=== PATIENT | male | born 1990 | race Two or more races ===

== ENCOUNTER 2025-10-23 18:08 | Emergency (ER) | payer MEDICAID, OTHER ==
[~2025-10-23] VITALS: Ht 162.6 cm; Wt 81.2 kg
[2025-10-23] MEDS ORDERED: IBUP-1455 PO (19:45)
--- NOTE | 2025-10-23 19:53 | ED.PDOC ---
Marcia. trauma (HPI) HPI Comments This is a 35 year-old male who presents to the ED with a chief complaint of neck pain as of yesterday. Patient states he was holding a pitbull when the dog attempted to bite him in the face. Patient twisted his neck in attempt to avoid getting bitten. Patient reports hearing a crack sound, similar to when cracking his knuckles. Patient states he is seeking a work excuse form to fully recover. Patient has no further complaints at this time and otherwise denies LOC, slurred speech, blurred vision, or N/V/D. Chief Complaint: Neck Pain Time Seen by MD: 19:30 Reviewed notes: Medications, Allergies Allergies: Coded Allergies: NO KNOWN ALLERGIES (Unverified , 10/23/25) Home Meds Active Scripts Ibuprofen Micronized (Ibuprofen) 800 Mg Tab, 800 MG PO QID PRN, #20 TAB Prov:LINNETTE BABCOCK 10/23/25 Information Source: Patient Mode of Arrival: Ambulatory Severity: Moderate Timing: Hours Duration: Since onset Location: Neck Mechanism: Twisting Past Medical History PAST MEDICAL HISTORY: Denies Surgical History: Denies all surgeries Family History Family History: Reviewed,noncontributory to illness, No family hx of Cancer, No family hx of DM, No family hx of Heart burke, No family hx of HTN, No family hx ofKidney burke, No family hx of Liver burke, No family hx of Lung burke, No family hx of Stroke Social History Smoker: Non-Smoker Alcohol: Denies ETOH Use Drugs: Denies Drug Use Lives In: Home Constitutional: denies: chills, diaphoresis, fatigue, fever, malaise, sweats, weakness, others EENTM: denies: blurred vision, double vision, ear bleeding, ear discharge, ear drainage, ear pain, ear ringing, eye pain, eye redness, hearing loss, mouth pain, mouth swelling, nasal discharge, nose bleeding, nose congestion, nose yessenia n, photophobia, tearing, throat pain, throat swelling, voice changes, others Respiratory: denies: cough, hemoptysis, orthopnea, SOB at rest, shortness of breath, SOB with excertion, stridor, wheezing, others Cardiovascular: denies: chest pain, dizzy spells, diaphoresis, Dyspnea on exertion, edema, irregular heart beat, left arm pain, lightheadedness, palpitations, PND, syncope, others Gastrointestinal: denies: abdomen distended, abdominal pain, blood streaked bowels, constipated, diarrhea, dysphagia, difficulty swallowing, hematemesis, melena, nausea, poor appetite, poor fluid intake, rectal bleeding, rectal pain, vomiting, others Genitourinary: denies: burning, dysuria, flank pain, frequency, hematuria, incontinence, penile discharge, penile sore, pain, testicle pain, testicle swelling, urgency, others Neurological: denies: dizziness, fainting, headache, left sided numbness, left sided weakness, numbness, paresthesia, pre-existing deficit, right sided numbness, right sided weakness, seizure, speech problems, tingling, tremors, weakness, others Musculoskeletal: reports: neck pain; denies: back pain, gout, joint pain, joint swelling, muscle pain, muscle stiffness, others Integumetry: denies: bruises, change in color, change in hair/nails, dryness, laceration, lesions, lumps, rash, wounds, others Allergic/Immunocompromised: denies: Difficulty Healing, Frequent Infections, Hives, Itching, others Hematologic/Lymphatic: denies: anemia, blood clots, easy bleeding, easy bruising, swollen glands, others Endocrine: denies: excessive hunger, excessive sweating, excessive thirst, excessive urination, flushing, intolerance to cold, intolerance to heat, unexplained weight gain, unexplained weight loss, others Psychiatric: denies: anxiety, bipolar disorder, depression, hopeless, panic disorder, schizophrenia, sleepless, suicidal, others All Other Systems: Reviewed and Negative Physical Exam General Appearance: No Apparent Distress, Normal HEENT: Normal ENT Inspection, Pharynx Normal, TMs Normal Neck: Full Range of Motion, Non-Tender, Normal, Normal Inspection Respiratory: No Respiratory Distress, Normal Breath Sounds Cardiovascular: Regular Rate/Rhythm Breast Exam: Deferred Gastrointestinal: No Organomegaly, Non Tender, No Pulsatile Mass, Normal Bowel Sounds, Soft Genitalia: Deferred Pelvic: Deferred Rectal: Deferred Extremities: No calf tenderness, Normal inspection, Non-tender, No pedal edema Musculoskeletal : Apperance: Normal Neurologic: Alert, No Motor Deficits, Normal Affect, Normal Mood, No Sensory Deficits Cerebellar Function: Normal Reflexes: Normal Skin: Dry, Normal Color, Warm Lymphatic: NOT DONE Was a procedure done? Was a procedure done?: No Differential Diagnosis Multiple Trauma: Closed Head Injury Neck Injury: Cervical Sprain, Cervical Strain, Spinal Cord Injury X-Ray, Labs, Meds, VS Vital Signs Date Time Temp Pulse Resp B/P (MAP) Pulse Ox O2 Delivery O2 Flow Rate FiO2 10/23/25 19:56 104 10/23/25 19:54 98.2 104 18 149/105 (120) 94 98.2 10/23/25 18:14 Room Air* 0 21 10/23/25 18:11 98.4 102 17 161/78 99 98.4 Time of 1ST Reevaluation: 20:33 Reevaluation 1ST: Unchanged Patient Education/Counseling: Diagnosis, Treatment Family Education/Counseling: No Family Present Departure 1 Departure Time of Disposition: 20:00 Impression: Primary Impression: Neck pain Additional Impression: Hypertension Disposition: HOME / SELF CARE / HOMELESS Condition: Stable e-Prescriptions Ibuprofen Micronized (Ibuprofen) 800 Mg Tab 800 MG PO QID PRN, #20 TAB Prov: LINNETTE BABCOCK 10/23/25 Discharged With: Self Critical Care Note Critical Care Time?: No Stability Stability form required: No Heart Score Heart Score: Heart Score Response (Comments) Value History N/A 0 EKG N/A 0 Age N/A 0 Risk Factors N/A 0 Troponin N/A 0 Total 0 I personally scribed for ER ([email or web address]) on 10/23/25 at 19:53. Electronically submitted by Traci White (F?rsat Bu F?rsat). I personally scribed for ER ([email or web address]) on 10/23/25 at 19:56. Electronically submitted by Traci UlloaF?rsat Bu F?rsat). ER Oct 23, 2025 19:53 LINNETTE BABCOCK Oct 24, 2025 02:39
[2025-10-23 19:54] VITALS: BP 149/105; RESP 18; TEMP 98.2; O2SAT 94
[2025-10-23 19:56] VITALS: PULSE 104
== END 2025-10-23 20:05 | disposition home or self-care (01) ==
LOC: ER 18:08
DX: M54.2 Cervicalgia (principal); I10 Essential (primary) hypertension